=== PATIENT | female | born 1960 | race Caucasian/White ===

== ENCOUNTER 2016-11-08 03:19 | Inpatient (IN) | payer OTHER ==
[~2016-11-08] VITALS: Ht 157.5 cm; Wt 52.1 kg
[~2016-11-08 03:19] MED LIST: COMBIVENT200 INHALA; FENTANYL1 EAC1; OXYCODONE HCL15 MG PO; VALIUM10 MG PO
[2016-11-08 04:23] LABS: CARBON DIOXIDE (BICARBONATE) 36.1 MEQ/L (20-31)
[2016-11-08 04:28] LABS: CHLORIDE 100 mEq/L (99-109); POTASSIUM 4.2 mEq/L (3.7-5.4); SODIUM 139 mEq/L (136-147)
[2016-11-08 04:30] LABS: GLUCOSE 89 mg/dL (70-99)
[2016-11-08 04:31] LABS: ANION GAP 12 MEQ/L (2-14)
[2016-11-08 04:33] LABS: GFR ESTIMATE (CALCULATED) > 59 mL/min/
[2016-11-08 04:34] LABS: INTER. NORMALIZED RATIO 0.9; PROTHROMBIN TIME 9.9 SEC (10.2-12.9); UREA NITROGEN (BUN) 11 mg/dL (9-23)
[2016-11-08 04:36] LABS: PTT 27.6 SEC (25-37)
[2016-11-08 04:38] LABS: TROP-I INTERPRETATION NEGATIVE; TROPONIN-I < 0.01 ng/mL (0.0-0.30)
[2016-11-08 04:41] LABS: HEMATOCRIT 39.7 % (36.0-46.0); MCHC 32.7 G/DL (30.0-36.0); MCV 94.7 FL (83-99); MEAN PLAT.VOLUME 8.8 uM^3 (9.5-12.4); PLATELET COUNT 283 K/uL (156-360); RBC DIS.WIDTH-CV 11.9 % (11.8-14.6); RBC DIS.WIDTH-SD 41.5 % (39-53); RED BLOOD COUNT 4.19 M/uL (3.80-5.20); WHITE BLOOD COUNT 7.7 K/uL (4.1-10.2)
[2016-11-08] MEDS ORDERED: FLEXERIL10 MG PO (08:51)
[2016-11-08] MEDS ORDERED: DUONEB 2.5-0.5 M3 ML AEROSOL (08:51)
[2016-11-08 11:38] VITALS: BP 128/60
[2016-11-08 16:20] VITALS: BP 112/58
[2016-11-08 20:00] VITALS: BP 123/69
[2016-11-08 23:44] VITALS: BP 109/57
[2016-11-09 03:55] VITALS: BP 105/59
[2016-11-09 06:30] LABS: EOSINOPHIL (%) 0 % (0-5); HEMATOCRIT 42.2 % (36.0-46.0); IMMATURE GRANULOCYTE (%) 0.3 % (0.0-0.7); LYMPHOCYTE COUNT 0.9 K/uL (1.0-2.8); MCH 31.2 PG (29.0-34.0); MCHC 32.5 G/DL (30.0-36.0); MCV 96.1 FL (83-99); MEAN PLAT.VOLUME 9.6 uM^3 (9.5-12.4); MONOCYTE (%) 7.2 % (3-12); MONOCYTE COUNT 0.5 K/uL (0-0.8); NEUTROPHIL (%) 80.1 % (45-76); RBC DIS.WIDTH-CV 11.9 % (11.8-14.6); RBC DIS.WIDTH-SD 42.5 % (39-53); RED BLOOD COUNT 4.39 M/uL (3.80-5.20); WHITE BLOOD COUNT 7.5 K/uL (4.1-10.2)
[2016-11-09 06:31] LABS: PLATELET COUNT 371 K/uL (156-360)
[2016-11-09 07:51] LABS: ALKALINE PHOSPHATASE 76 IU/L (3-129); ANION GAP 10 MEQ/L (2-14); CHLORIDE 99 MEQ/L (99-109); GFR ESTIMATE (CALCULATED) > 59 mL/min/; GLUCOSE 125 mg/dL (70-99); POTASSIUM 4.8 MEQ/L (3.7-5.4); SAMPLE HEMOLYSIS CHECK 0; SAMPLE ICTERIC CHECK 0; SAMPLE LIPEMIA CHECK 0; SODIUM 139 MEQ/L (136-147); TOTAL BILIRUBIN 0.4 MG/DL (0.0-1.0); UREA NITROGEN (BUN) 8 mg/dL (9-23)
[2016-11-09 08:41] LABS: INTERNAL CONTROL VALID? YES
[2016-11-09 08:51] VITALS: BP 110/62
[2016-11-09 12:23] VITALS: BP 110/64
[2016-11-09 16:10] VITALS: BP 101/61
[2016-11-09 21:00] VITALS: BP 131/77
[2016-11-10 03:30] VITALS: BP 105/59
[2016-11-10 07:51] VITALS: BP 133/60
[2016-11-10 11:08] VITALS: BP 112/58
[2016-11-10 15:29] VITALS: BP 102/50
[2016-11-10 19:09] VITALS: BP 118/59
[2016-11-10 23:51] VITALS: BP 110/71
[2016-11-11 07:53] VITALS: BP 127/64
[2016-11-11 11:45] VITALS: BP 112/78
[2016-11-11 16:23] VITALS: BP 144/87
[2016-11-11 20:28] VITALS: BP 118/60
[2016-11-11 23:59] VITALS: BP 115/62
[2016-11-12 04:09] VITALS: BP 128/58
[2016-11-12 08:30] VITALS: BP 133/77
[2016-11-12 12:13] VITALS: BP 132/77
[2016-11-12 15:42] VITALS: BP 120/60
[2016-11-12 20:12] VITALS: BP 126/80
[2016-11-13 00:16] VITALS: BP 124/80
[2016-11-13 03:51] VITALS: BP 110/76
[2016-11-13 07:59] VITALS: BP 107/72
[2016-11-13 11:54] VITALS: BP 121/67
[2016-11-13 15:37] VITALS: BP 117/63
[2016-11-13] MEDS ORDERED: ADVAIR HFA120 INHALA IH (16:35)
[2016-11-13] MEDS ORDERED: RISPERIDONE1 MG PO (16:35)
[2016-11-13] MEDS ORDERED: ESCITALOPRAM OX10 MG PO (16:35)
[2016-11-13] MEDS ORDERED: OXYCODONE HCL15 MG PO (16:36)
[2016-11-13] MEDS ORDERED: PREDNISONE10 MG PO (16:36)
== END 2016-11-13 17:33 | disposition home health service (06) | DRG 190 ==
LOC: EME → EDBD 03:19 → 5SOUTH 07:18 → EDOF 07:18 → 5SOUTH 07:18 → ENRESERV 07:22 → 5SOUTH 11:05
PROVIDERS: Emergency Medicine; Hospitalist
DX: J44.1 Chronic obstructive pulmonary disease with (acute) exacerbation (principal); J96.01 Acute respiratory failure with hypoxia; Z87.891 Personal history of nicotine dependence; F32.9 Major depressive disorder, single episode, unspecified; F41.9 Anxiety disorder, unspecified; J20.9 Acute bronchitis, unspecified; Z90.2 Acquired absence of lung [part of]; J44.0 Chronic obstructive pulmonary disease with (acute) lower respiratory infection; G89.29 Other chronic pain; F45.9 Somatoform disorder, unspecified; F22 Delusional disorders; Z85.118 Personal history of other malignant neoplasm of bronchus and lung
CPT/HCPCS: 70450; 71010; 72192; 80048; 80053; 82140; 82803; 83880; 84484; 85025; 85027; 85610; 85730; 87449; 93005; 94640; 94640 76; 94799; 99202; 99281; 99285; J0456; J0696; J1170; J1650; J2920; J7030; J7050; J7644